=== PATIENT | male | born 1975 | race African-American/Black ===

== ENCOUNTER 2019-03-30 12:53 | Inpatient (IN) | payer OTHER ==
[2019-03-30 15:22] VITALS: BMI 21.5
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
[2019-03-30] MEDS ORDERED: BISMUTH SUBSALICYLATE 524 MG/30 ML UD PO PRN (16:50)
[2019-03-30] MEDS ORDERED: ACETAMINOPHEN 325 MG TABLET (FP) PO PRN ×2 (16:50)
[2019-03-30] MEDS ORDERED: hydrOXYzine PAMOATE 25 MG CAPSULE (FP) PO PRN (16:50)
[2019-03-30] MEDS ORDERED: MENTHOL/PHENOL 1 EACH UD MM PRN (16:50)
[2019-03-30] MEDS ORDERED: MAG HYDROX/AL HYDROX/SIMETH 30 ML UNIT-DOSE CUP PO PRN (16:50)
[2019-03-30] MEDS ORDERED: METHOCARBAMOL 500 MG TABLET PO PRN (16:50)
[2019-03-30] MEDS ORDERED: MAGNESIUM HYDROX 2400MG/30ML ORAL SUSPENSION 30 ML CUP PO PRN (16:50)
[2019-03-30] MEDS ORDERED: chlordiazePOXIDE HCL 25 MG CAPSULE PO PRN (16:50)
[2019-03-30] MEDS ORDERED: IBUPROFEN 400 MG TABLET (FP) PO PRN (16:50)
[2019-03-30] MEDS ORDERED: MAGNESIUM CITRATE 300 ML BOTTLE PO PRN (16:50)
[2019-03-30] MEDS: chlordiazePOXIDE HCL 25 MG CAPSULE PO SCH ×2 (17:59→22:38)
[2019-03-30] MEDS ORDERED: NICOTINE POLACRILEX 2 MG GUM BC PRN (21:15)
[2019-03-30] MEDS: MELATONIN 5 MG TABLETS PO PRN (22:38)
[2019-03-30] MEDS: THIAMINE HCL 100 MG TABLET (FP) PO SCH (22:38)
[2019-03-31] MEDS: chlordiazePOXIDE HCL 25 MG CAPSULE PO SCH (10:34)
[2019-03-31] MEDS: PRENATAL VITAMINS W/ FOLIC ACID TABLET (FP) PO SCH (10:34)
[2019-03-31] MEDS: NICOTINE 14 MG/24 HOURS TOPICAL PATCH TD SCH (10:35)
[2019-03-31 10:55] LABS: HEMATOCRIT 39.7 % (35.4-49); HEMOGLOBIN 13.4 GM/dL (11.7-16.9); MCH 31.9 pg (25.7-33.7); MCHC 33.7 g/dl (32.0-35.9); MEAN CELL VOLUME 94.8 fl (80-96); MEAN PLT VOLUME 7.3 fl (7.5-11.1); RBC 4.19 M/mm3 (4.00-5.60); RDW 13.7 % (11.9-15.9); WHITE BLOOD COUNT 2.5 K/mm3 (4.0-10.0)
[2019-03-31 11:07] LABS: ALBUMIN 3.2 g/dl (3.4-5.0); BILIRUBIN,TOTAL 0.4 mg/dL (0.2-1); BLOOD UREA NITROGEN 16.2 mg/dL (7-18); CALCIUM 8.8 mg/dL (8.5-10.1); CREATININE 0.8 mg/dL (0.55-1.3); POTASSIUM 4.1 mmol/L (3.5-5.1); TOT PROT 6.4 g/dl (6.4-8.2)
[2019-03-31 11:21] LABS: PLATELET COUNT 233 K/MM3 (134-434)
--- NOTE | 2019-03-31 11:32 | PN ---
S CIWA - CIWA Score Nausea/Vomitin-No Nausea/No Vomiting Muscle Tremors: 2 Anxiety: 3 Agitation: 2 Paroxysmal Sweats: 3 Orientation: 0-Oriented Tacttile Disturbances: 0-None Auditory Disturbances: 0-None Visual Disturbances: 0-None Headache: 2-Mild CIWA-Ar Total Score: 12 S Progress Note (SOAP) Subjective: c/o muscle aches, headache, anxiety, and sweats. Objective: 03/31/19 11:31 Vital Signs 03/31/19 03/31/19 06:00 09:55 Temperature 97.1 F L 96.8 F L Pulse Rate 78 74 Respiratory 18 18 Rate Blood Pressure 125/76 105/60 Lab Results WBC 2.5 K/mm3 (4.0-10.0) L 03/31/19 08:00 RBC 4.19 M/mm3 (4.00-5.60) 03/31/19 08:00 Hgb 13.4 GM/dL (11.7-16.9) 03/31/19 08:00 Hct 39.7 % (35.4-49) 03/31/19 08:00 MCV 94.8 fl (80-96) 03/31/19 08:00 MCHC 33.7 g/dl (32.0-35.9) 03/31/19 08:00 RDW 13.7 % (11.9-15.9) 03/31/19 08:00 Plt Count 233 K/MM3 (134-434) D 03/31/19 08:00 Sodium 141 mmol/L (136-145) 03/31/19 08:00 Potassium 4.1 mmol/L (3.5-5.1) 03/31/19 08:00 Chloride 106 mmol/L (98-107) 03/31/19 08:00 Carbon Dioxide 31 mmol/L (21-32) 03/31/19 08:00 Anion Gap 4 MMOL/L (8-16) L 03/31/19 08:00 BUN 16.2 mg/dL (7-18) 03/31/19 08:00 Creatinine 0.8 mg/dL (0.55-1.3) 03/31/19 08:00 Random Glucose 87 mg/dL (74-106) 03/31/19 08:00 Calcium 8.8 mg/dL (8.5-10.1) 03/31/19 08:00 Labs noted. Assessment: 03/31/19 11:31 AOX3, in no acute respiratory distress. Full ROM, ambulating in the unit. Withdrawal symptoms. Plan: continue detox. Increase fluids.
--- NOTE | 2019-03-31 16:05 | CONSULT ---
[facility] Psychiatric Consult - Data Date of interview: 03/31/19 Admission source: [facility] Identifying data: Patient declines psychiatric evaluation. " I am a very private person. I don't discuss my personal issues with people. I don't need the services of a psychiatrist." Nursing staff is made aware.
[2019-03-31] MEDS: THIAMINE HCL 100 MG TABLET (FP) PO SCH (23:05)
[2019-04-01] MEDS: chlordiazePOXIDE HCL 25 MG CAPSULE PO SCH ×4 (07:24→23:56)
[2019-04-01] MEDS: NICOTINE 14 MG/24 HOURS TOPICAL PATCH TD SCH (10:44)
[2019-04-01] MEDS: PRENATAL VITAMINS W/ FOLIC ACID TABLET (FP) PO SCH (10:51)
--- NOTE | 2019-04-01 15:23 | PN ---
S CIWA - CIWA Score Nausea/Vomitin-Mild Nausea/No Vomiting Muscle Tremors: 4-Moderate,w/Arms Extend Anxiety: 4-Mod. Anxious/Guarded Agitation: 4-Moderately Restless Paroxysmal Sweats: 3 Orientation: 0-Oriented Tacttile Disturbances: 0-None Auditory Disturbances: 0-None Visual Disturbances: 0-None Headache: 0-None Present CIWA-Ar Total Score: 16 BHS Progress Note (SOAP) Subjective: Very agitated. "I'm not too good." Patient refused to speak with public relations writer. Objective: 04/01/19 15:21 Last Vital Signs Temp Pulse Resp BP Pulse Ox 99.1 F 91 H 18 108/61 04/01/19 13:08 04/01/19 13:08 04/01/19 13:08 04/01/19 13:08 Laboratory Tests 03/31/19 03/31/19 03/31/19 08:00 08:00 08:00 WBC 2.5 L RBC 4.19 Hgb 13.4 Hct 39.7 MCV 94.8 MCH 31.9 MCHC 33.7 RDW 13.7 Plt Count 233 D MPV 7.3 L Sodium 141 Potassium 4.1 Chloride 106 Carbon Dioxide 31 Anion Gap 4 L BUN 16.2 Creatinine 0.8 Est GFR (CKD-EPI)AfAm 127.70 Est GFR (CKD-EPI)NonAf 110.18 Random Glucose 87 Calcium 8.8 Total Bilirubin 0.4 AST 27 ALT 30 Alkaline Phosphatase 66 Total Protein 6.4 Albumin 3.2 L RPR Titer Nonreactive Labs reviewed: wbc 2.5 (encourage good hygiene with soap and water before eating and after using bathroom) Assessment: 04/01/19 15:23 Withdrawal sxs Plan: Continue detox Encouraged PO water intake
[2019-04-01] MEDS: THIAMINE HCL 100 MG TABLET (FP) PO SCH (23:55)
[2019-04-02] MEDS ORDERED: chlordiazePOXIDE HCL 10 MG CAPSULE PO PRN
[2019-04-02] MEDS: chlordiazePOXIDE HCL 10 MG CAPSULE PO SCH ×4 (06:40→22:22)
[2019-04-02] MEDS: NICOTINE 14 MG/24 HOURS TOPICAL PATCH TD SCH (11:36)
[2019-04-02] MEDS: PRENATAL VITAMINS W/ FOLIC ACID TABLET (FP) PO SCH (11:36)
--- NOTE | 2019-04-02 13:03 | EKG ---
Test Reason : Blood Pressure : / mmHG Vent. Rate : 091 BPM Atrial Rate : 091 BPM P-R Int : 176 ms QRS Dur : 094 ms QT Int : 358 ms P-R-T Axes : 074 066 029 degrees QTc Int : 440 ms NORMAL SINUS RHYTHM POSSIBLE LEFT ATRIAL ENLARGEMENT BORDERLINE ECG NO PREVIOUS ECGS AVAILABLE Confirmed by ANTHONY GARRETT, BERTA ([id number]) on 04/02/2019 1:02:39 PM Referred By: Confirmed By:BERTA CRUZ MD
--- NOTE | 2019-04-02 13:18 | PN ---
BHS CIWA - CIWA Score Nausea/Vomitin-Mild Nausea/No Vomiting Muscle Tremors: 2 Anxiety: 1-Mildly Anxious Agitation: 1-Slight > Activity Paroxysmal Sweats: 1-Minimal Palms Moist Orientation: 0-Oriented Tacttile Disturbances: 0-None Auditory Disturbances: 0-None Visual Disturbances: 0-None Headache: 1-Very Mild CIWA-Ar Total Score: 7 BHS Progress Note (SOAP) Subjective: pt eating breakfast, no complaints O: Vital Signs - 24 hr 04/01/19 04/01/19 04/02/19 16:35 21:26 02:33 Temperature 97.9 F 97.7 F Pulse Rate 95 H 96 H Respiratory 20 18 18 Rate Blood Pressure 103/59 L 111/66 04/02/19 04/02/19 03:30 06:00 Temperature 97.7 F Pulse Rate 84 Respiratory 18 18 Rate Blood Pressure 133/68 Laboratory Tests 03/31/19 03/31/19 03/31/19 08:00 08:00 08:00 WBC 2.5 L RBC 4.19 Hgb 13.4 Hct 39.7 MCV 94.8 MCH 31.9 MCHC 33.7 RDW 13.7 Plt Count 233 D MPV 7.3 L Sodium 141 Potassium 4.1 Chloride 106 Carbon Dioxide 31 Anion Gap 4 L BUN 16.2 Creatinine 0.8 Est GFR (CKD-EPI)AfAm 127.70 Est GFR (CKD-EPI)NonAf 110.18 Random Glucose 87 Calcium 8.8 Total Bilirubin 0.4 AST 27 ALT 30 Alkaline Phosphatase 66 Total Protein 6.4 Albumin 3.2 L RPR Titer Nonreactive a/p: continue alcohol detox protocol= pt doing well
[2019-04-02] MEDS: THIAMINE HCL 100 MG TABLET (FP) PO SCH (22:22)
[2019-04-02] MEDS: MELATONIN 5 MG TABLETS PO PRN (22:22)
[2019-04-03] MEDS: chlordiazePOXIDE HCL 10 MG CAPSULE PO SCH ×2 (06:28→17:05)
[2019-04-03] MEDS: PRENATAL VITAMINS W/ FOLIC ACID TABLET (FP) PO SCH (10:27)
[2019-04-03] MEDS: NICOTINE 14 MG/24 HOURS TOPICAL PATCH TD SCH (10:27)
--- NOTE | 2019-04-03 12:25 | PN ---
S CIWA - CIWA Score Nausea/Vomitin Muscle Tremors: 2 Anxiety: 2 Agitation: 2 Paroxysmal Sweats: No Perspiration Orientation: 0-Oriented Tacttile Disturbances: 1-Very Mild Itch/Numbness Auditory Disturbances: 0-None Visual Disturbances: 0-None Headache: 1-Very Mild CIWA-Ar Total Score: 10 S Progress Note (SOAP) Subjective: alert,irritable,anxious,interrupted sleep Objective: 04/03/19 12:23 Vital Signs Temperature 97.3 F L 04/03/19 09:29 Pulse Rate 98 H 04/03/19 09:29 Respiratory Rate 18 04/03/19 09:29 Blood Pressure 110/69 04/03/19 09:29 O2 Sat by Pulse Oximetry (%) Assessment: 04/03/19 12:23 withdrawal symptom Plan: continue detox librium regimen,discharge in am
[2019-04-03] MEDS: THIAMINE HCL 100 MG TABLET (FP) PO SCH (22:18)
[2019-04-03] MEDS: MELATONIN 5 MG TABLETS PO PRN (22:18)
[2019-04-04] MEDS ORDERED: chlordiazePOXIDE HCL 10 MG CAPSULE PO ONE (05:00)
--- NOTE | 2019-04-04 08:39 | DS ---
[facility] Detox Discharge Summary Admission Date: 03/30/19 Discharge Date: 04/04/19 - History Present History: Alcohol Dependence, Cannabis Dependence, Cocaine Dependence - Physical Exam Results Vital Signs: Vital Signs Temperature 98.2 F 04/03/19 21:23 Pulse Rate 80 04/03/19 21:23 Respiratory Rate 18 04/04/19 03:30 Blood Pressure 132/86 04/03/19 21:23 O2 Sat by Pulse Oximetry (%) Pertinent Admission Physical Exam Findings: pt arrived in withdrawals Laboratory Tests 03/31/19 03/31/19 03/31/19 08:00 08:00 08:00 WBC 2.5 L RBC 4.19 Hgb 13.4 Hct 39.7 MCV 94.8 MCH 31.9 MCHC 33.7 RDW 13.7 Plt Count 233 D MPV 7.3 L Sodium 141 Potassium 4.1 Chloride 106 Carbon Dioxide 31 Anion Gap 4 L BUN 16.2 Creatinine 0.8 Est GFR (CKD-EPI)AfAm 127.70 Est GFR (CKD-EPI)NonAf 110.18 Random Glucose 87 Calcium 8.8 Total Bilirubin 0.4 AST 27 ALT 30 Alkaline Phosphatase 66 Total Protein 6.4 Albumin 3.2 L RPR Titer Nonreactive pt is aaox3 ambulating no acute distress no s/s of withdrawals - Treatment Hospital Course: Detox Protocol Followed, Detoxed Safely, Responded well, Discharged Condition Good, Rehab Referral Accepted Patient has Accepted a Rehab Referral to: pt referred to [facility] - Medication Discharge Medications: Ambulatory Orders NK [No Known Home Medication] 03/30/19 - Diagnosis (1) Alcohol dependence with uncomplicated withdrawal Current Visit: Yes Status: Chronic (2) Anxiety and depression Current Visit: No Status: Chronic (3) Cannabis dependence Current Visit: No Status: Chronic (4) Cocaine dependence Current Visit: Yes Status: Chronic Qualifiers: Substance use status: uncomplicated Qualified Code(s): F14.20 - Cocaine dependence, uncomplicated - AMA Did Patient Leave Against Medical Advice: No
[2019-04-04 13:44] VITALS: BP 117/94; PULSE 69; TEMP 97.7
[2019-04-04] MEDS: NICOTINE 14 MG/24 HOURS TOPICAL PATCH TD SCH (15:14)
[2019-04-04] MEDS: PRENATAL VITAMINS W/ FOLIC ACID TABLET (FP) PO SCH (15:15)
== END 2019-04-04 15:30 | disposition home or self-care (01) | DRG 774 ==
LOC: YASAS 12:53 → Y6N 17:09
PROVIDERS: ADMIT Surgery; ATTEND Surgery
PROC: HZ2ZZZZ Detoxification Services for Substance Abuse Treatment (ICD-10-PCS; principal; 2019-03-30)
DX: F10.230 Alcohol dependence with withdrawal, uncomplicated (principal); F14.20 Cocaine dependence, uncomplicated; F12.20 Cannabis dependence, uncomplicated; F17.210 Nicotine dependence, cigarettes, uncomplicated; F41.9 Anxiety disorder, unspecified; F32.9 Major depressive disorder, single episode, unspecified
CPT/HCPCS: 36415; 71046-TC-FY; 80053; 85027; 86480; 86593; 93005; 93010

== ENCOUNTER 2020-08-02 13:09 | Inpatient (IN) | payer OTHER ==
[2020-08-02 13:29] VITALS: BMI 21.1
[2020-08-02] MEDS ORDERED: MAG HYDROX/AL HYDROX/SIMETH 30 ML UNIT-DOSE CUP PO PRN (17:15)
[2020-08-02] MEDS ORDERED: NICOTINE POLACRILEX 2 MG GUM BUC PRN (17:15)
[2020-08-02] MEDS ORDERED: MAGNESIUM CITRATE 300 ML BOTTLE PO PRN (17:15)
[2020-08-02] MEDS ORDERED: ACETAMINOPHEN 325 MG TABLET (FP) PO PRN ×2 (17:15)
[2020-08-02] MEDS ORDERED: METHOCARBAMOL 500 MG TABLET PO PRN (17:15)
[2020-08-02] MEDS ORDERED: MENTHOL/PHENOL 1 EACH UD MM PRN (17:15)
[2020-08-02] MEDS ORDERED: chlordiazePOXIDE HCL 25 MG CAPSULE PO PRN (17:15)
[2020-08-02] MEDS ORDERED: MAGNESIUM HYDROX 2400MG/30ML ORAL SUSPENSION 30 ML CUP PO PRN (17:15)
[2020-08-02] MEDS ORDERED: BISMUTH SUBSALICYLATE 524 MG/30 ML UD PO PRN (17:15)
[2020-08-02] MEDS ORDERED: IBUPROFEN 400 MG TABLET (FP) PO PRN (17:15)
[2020-08-02] MEDS ORDERED: ONDANSETRON *ODT* 4 MG TABLET SL PRN (17:15)
[2020-08-02] MEDS ORDERED: hydrOXYzine PAMOATE 25 MG CAPSULE (FP) PO PRN (17:22)
[2020-08-02] MEDS: MELATONIN 5 MG TABLETS PO SCH ×3 (22:12→23:23)
[2020-08-02] MEDS: THIAMINE HCL 100 MG TABLET (FP) PO SCH ×3 (22:12→23:23)
[2020-08-02] MEDS: chlordiazePOXIDE HCL 25 MG CAPSULE PO SCH ×3 (22:12→23:23)
[2020-08-03] MEDS: chlordiazePOXIDE HCL 25 MG CAPSULE PO SCH ×5 (07:49→22:49)
[2020-08-03] MEDS ORDERED: PRENATAL VITAMINS W/ FOLIC ACID TABLET (FP) PO SCH (10:00)
[2020-08-03] MEDS: THIAMINE HCL 100 MG TABLET (FP) PO SCH (22:49)
[2020-08-03] MEDS: MELATONIN 5 MG TABLETS PO SCH (22:49)
[2020-08-04] MEDS ORDERED: chlordiazePOXIDE HCL 25 MG CAPSULE PO SCH (05:00)
[2020-08-04 07:08] VITALS: BP 97/58; PULSE 76; TEMP 97.8
[2020-08-05] MEDS ORDERED: chlordiazePOXIDE HCL 10 MG CAPSULE PO PRN
[2020-08-05] MEDS ORDERED: chlordiazePOXIDE HCL 10 MG CAPSULE PO SCH (05:00)
[2020-08-06] MEDS ORDERED: chlordiazePOXIDE HCL 10 MG CAPSULE PO SCH (05:00)
[2020-08-07] MEDS ORDERED: chlordiazePOXIDE HCL 10 MG CAPSULE PO ONE (05:00)
== END 2020-08-04 10:05 | disposition home or self-care (01) | DRG 774 ==
LOC: YASAS 13:09 → Y6N 17:16
PROVIDERS: ADMIT Allergy & Immunology; ATTEND Allergy & Immunology
PROC: HZ2ZZZZ Detoxification Services for Substance Abuse Treatment (ICD-10-PCS; principal; 2020-08-02)
DX: F10.230 Alcohol dependence with withdrawal, uncomplicated (principal); F14.20 Cocaine dependence, uncomplicated; F12.20 Cannabis dependence, uncomplicated; F17.210 Nicotine dependence, cigarettes, uncomplicated; F41.9 Anxiety disorder, unspecified; F32.9 Major depressive disorder, single episode, unspecified; Z59.0 Homelessness
CPT/HCPCS: 93005; 93010; C9803; U0003